=== PATIENT | male | born 1970 | race Caucasian/White ===

== ENCOUNTER → 2018-06-16 | Outpatient (CLI) | payer OTHER ==
[~2018-06-16] MED LIST: ALLEGRA ALLERG180 MG; CLARITIN10 MG; FLOMAX0.4 MG PO; HYDROCODONE-APA1 TA1 PO; MUCINEX TA600 MG/TA2; TESSALON PERLE100 MG; ZOFRAN ODT4 MG PO
== END ==
LOC: M.RAD 16:21
DX: M79.641 Pain in right hand (principal); R60.0 Localized edema; I10 Essential (primary) hypertension

== ENCOUNTER 2019-11-18 18:30 | Emergency (ER) | payer BC ==
[~2019-11-18] VITALS: Ht 188 cm; Wt 124.7 kg
[2019-11-18] MEDS ORDERED: LISINOPRIL20 MG PO (18:40)
[2019-11-18] MEDS ORDERED: ROSUVASTATIN CA10 MG PO (18:40)
[2019-11-18] MEDS ORDERED: LORCET 5-325 M1 EACH PO (18:40)
[2019-11-18] MEDS ORDERED: METFORMIN HCL500 M3 PO (18:41)
[2019-11-18] MEDS ORDERED: LEVO-T25 MCG PO (18:41)
[2019-11-18] MEDS ORDERED: DIAZEPAM 10 MG10 M2 PO (18:41)
[2019-11-18] MEDS ORDERED: TIZANIDINE HCL4 M1 PO (18:41)
[2019-11-18] MEDS ORDERED: LYRICA150 MG PO (18:42)
[2019-11-18] MEDS ORDERED: BUSPIRONE HCL10 MG PO (18:42)
[2019-11-18] MEDS ORDERED: NORTRIPTYLINE H50 M3 PO (18:42)
[2019-11-18] MEDS ORDERED: VOLTAREN GEL 1100 G1 TOP (18:43)
[2019-11-18] MEDS ORDERED: MOBIC7.5 MG PO (18:43)
[2019-11-18] MEDS ORDERED: LIDODERM1 EACH TOP (18:43)
[2019-11-18 18:57] LABS: ABSOLUTE BASOPHILS 0.1 thou/uL (0.0-0.2); ABSOLUTE EOSINOPHILS 0.1 thou/uL (0.0-0.7); ABSOLUTE LYMPHOCYTES 2.2 thou/uL (0.8-5.3); ABSOLUTE MONOCYTES 0.4 thou/uL (0.0-1.2); ABSOLUTE NEUTROPHILS 2.8 thou/uL (1.6-8.1); EOSINOPHILS 2.5 %; HEMATOCRIT 42.5 % (42.0-52.0); LYMPHOCYTES 39.1 %; MCH 31.2 pg (26.0-34.0); MCHC 35.3 g/dL (28.0-37.0); MCV 88.6 fL (80.0-100.0); MONOCYTES 7.9 %; MPV 8.5 fl. (7.2-11.1); NUCLEATED RBCS 0 /100WBC; PLATELET COUNT* 225 thou/uL (150-400); POLYS 49.5 %; RDW-CV 12.7 % (10.5-14.5); WBC 5.6 thou/uL (4.0-11.0)
[2019-11-18 19:10] LABS: CALCIUM 8.9 mg/dL (8.5-10.1); CREATININE 1.3 mg/dL (0.6-1.3); POTASSIUM 3.5 mmol/L (3.5-5.1)
[2019-11-18 19:12] LABS: APTT 27.1 Seconds (25.0-31.3); PROTIME 10.1 Seconds (9.20-11.50)
[2019-11-18 19:14] LABS: ALBUMIN 4.1 g/dL (3.4-5.0); TOTAL BILIRUBIN 0.4 mg/dL (<0.1-1.0); TOTAL PROTEIN 7.7 g/dL (6.4-8.2)
[2019-11-18 20:00] VITALS: BP 156/105
--- NOTE | 2019-11-19 12:34 | EKG ---
[place] [address] ELECTROCARDIOGRAM REPORT Name: ALTHEA BRANDT Room: [facility]#: [id number] Admission: 11/18/19 Attend Phys: Discharge: 11/18/19 Date of : 74 Report #: [id number] THIS REPORT FOR: //name// [facility] ED Test Date: 2019-11-18 Test Time: 18:36:10 Pat Name: ALTHEA ADHIKARIFAIZAALO Department: Room: Gender: M Beauty Operator Apprentice: : 1970 Requested By: Sarah Orta Order Number: [id number] MD: Dom Michele Measurements Intervals [place] Rate: 77 P: 59 NV: 201 QRS: -21 QRSD: 90 T: 45 QT: 357 QTc: 404 Interpretive Statements Sinus rhythm Inferior infarct, old Anterior infarct, old Compared to ECG 01/31/2016 06:10:52 Prolonged QT interval no longer present Electronically Signed On 11-19-2019 12:33:53 [employer] by Dom Michele [email or web address] <ELECTRONICALLY SIGNED> By: Dom Michele MD, [facility] 11/19/19 1233 [id number] Dom Michele MD, FAC /EPI
== END 2019-11-18 20:01 | disposition home or self-care (01) ==
LOC: M.ERS 18:30
PROVIDERS: Personal Emergency Response Attendant
DX: R07.89 Other chest pain (principal); M54.2 Cervicalgia; E78.00 Pure hypercholesterolemia, unspecified; R06.02 Shortness of breath; R51 Headache; F41.9 Anxiety disorder, unspecified; E11.9 Type 2 diabetes mellitus without complications; E03.9 Hypothyroidism, unspecified; I10 Essential (primary) hypertension; Z90.89 Acquired absence of other organs; Z98.52 Vasectomy status; Z79.899 Other long term (current) drug therapy